=== PATIENT | female | born 1980 | race African-American/Black ===

== ENCOUNTER 2021-05-01 23:23 | Emergency (ER) | payer MEDICARE ==
[~2021-05-01] VITALS: Ht 180.3 cm; Wt 81.6 kg
[~2021-05-01 23:23] MED LIST: BUMETANIDE2 MG PO; CEFDINIR300 MG PO; CETIRIZINE HCL10 MG PO; DILTIAZEM 24HR360 MG PO; FLONASE 0.05% N16 GM; LEVOFLOXACIN250 MG PO; METOPROLOL SUC100 MG PO; POTASSIUM CHLO10 ME1 PO; ROCALTROL CA0.25 MCG PO
[2021-05-02 00:18] LABS: HEMOGLOBIN 11.5 gm/dl (12.3-15.3); RED BLOOD COUNT 4.12 M/UL (4.00-5.10); WHITE BLOOD COUNT 8.5 K/UL (4.5-11.0)
[2021-05-02] MEDS ORDERED: ZOFRAN ODT 4 MG4 MG SL (13:17)
== END 2021-05-02 19:45 | disposition admitted as inpatient to this hospital (09) ==
LOC: ER1 23:23
PROVIDERS: Emergency Medicine; Physician Assistant
DX: N18.6 End stage renal disease (principal); Z99.2 Dependence on renal dialysis; F17.210 Nicotine dependence, cigarettes, uncomplicated
CPT/HCPCS: 71045; 80048; 80053; 83735; 84132; 85025; 93005; 96374; 96375; 96376; 99285; J3475; J3480; J7070

== ENCOUNTER 2021-06-18 11:55 | Inpatient (IN) | payer MEDICARE, BC ==
[~2021-06-18] VITALS: Ht 180.3 cm; Wt 81.6 kg
[~2021-06-18 11:55] MED LIST changes: +ZOFRAN ODT 4 MG4 MG SL
[2021-06-18 12:37] LABS: HEMOGLOBIN 11.1 gm/dl (12.3-15.3); RED BLOOD COUNT 3.72 M/UL (4.00-5.10); WHITE BLOOD COUNT 12.9 K/UL (4.5-11.0)
[2021-06-18 15:33] LABS: BODY FLUID SOURCE PERITONEAL; RBC (AUTOMATED) 1700 (0-100000); WBC (AUTOMATED) 16530 (0-500)
[2021-06-18 15:34] LABS: MONONUCLEAR CELLS 5 (75-100); POLYMORPHONUCLEAR % 95 (0-25)
[2021-06-18 15:38] LABS: LDH, BODY FLUID 230 U/L; TOTAL PROTEIN, BODY FLUID 0.6 gm/dL
[2021-06-18] MEDS ORDERED: POTASSIUM20 MEQ/15 PO (21:08)
[2021-06-19 07:17] LABS: WHITE BLOOD COUNT 12.8 K/UL (4.5-11.0)
[2021-06-19 07:18] LABS: HEMOGLOBIN 8.9 gm/dl (12.3-15.3); RED BLOOD COUNT 3.03 M/UL (4.00-5.10)
[2021-06-22 06:51] LABS: HEMOGLOBIN 9.5 gm/dl (12.3-15.3); RED BLOOD COUNT 3.22 M/UL (4.00-5.10); WHITE BLOOD COUNT 11.2 K/UL (4.5-11.0)
[2021-06-22] MEDS ORDERED: ROXICODONE TAB 55 MG PO (08:40)
[2021-06-22] MEDS ORDERED: LACTULOSE10 GM/15 M PO (08:40)
== END 2021-06-22 14:00 | disposition home or self-care (01) | DRG 919 ==
LOC: ER1 11:55 → CDU 16:30 → MED SURG 4 16:30
PROVIDERS: Internal Medicine; Internal Medicine Nephrology; Nurse Practitioner; ADMIT Internal Medicine
PROC: 3E1M39Z Irrigation of Peritoneal Cavity using Dialysate, Percutaneous Approach (ICD-10-PCS; principal; 2021-06-19)
DX: T85.71XA Infection and inflammatory reaction due to peritoneal dialysis catheter, initial encounter (principal); N18.6 End stage renal disease; Z20.822 Contact with and (suspected) exposure to COVID-19; Z66 Do not resuscitate; A41.89 Other specified sepsis; K65.2 Spontaneous bacterial peritonitis; N25.81 Secondary hyperparathyroidism of renal origin; I12.0 Hypertensive chronic kidney disease with stage 5 chronic kidney disease or end stage renal disease; Y83.8 Other surgical procedures as the cause of abnormal reaction of the patient, or of later complication, without mention of misadventure at the time of the procedure; F17.210 Nicotine dependence, cigarettes, uncomplicated; E78.5 Hyperlipidemia, unspecified; D63.1 Anemia in chronic kidney disease; K59.00 Constipation, unspecified; B96.4 Proteus (mirabilis) (morganii) as the cause of diseases classified elsewhere; E87.6 Hypokalemia; E83.51 Hypocalcemia; Z90.49 Acquired absence of other specified parts of digestive tract; Z88.6 Allergy status to analgesic agent; Z88.8 Allergy status to other drugs, medicaments and biological substances; Z88.2 Allergy status to sulfonamides; Z91.041 Radiographic dye allergy status
CPT/HCPCS: 36415; 80048; 80053; 80202; 82945; 83605; 83615; 83690; 83735; 84132; 84157; 85025; 87040; 87070; 87077; 87186; 87205; 89051; 90945; 90947; 96374; 96375; 96376; 99285; J0610; J0696; J2020; J2185; J2270; J2405; J3370; J3475; J3480; J7050; U0002

== ENCOUNTER → 2021-07-19 | Outpatient (CLI) | payer MEDICARE, BC ==
[~2021-07-19] MED LIST changes: +LACTULOSE10 GM/15 M PO; +POTASSIUM20 MEQ/15 PO; +ROXICODONE TAB 55 MG PO
[2021-07-19 14:10] LABS: BODY FLUID SOURCE PERITONEAL
[2021-07-19 14:11] LABS: MONONUCLEAR CELLS 44 %; POLYMORPHONUCLEAR 56 %; RBC (AUTOMATED) 800 10^6; WBC (AUTOMATED) 43 10^3
== END ==
LOC: LBRF 12:46
PROVIDERS: Internal Medicine Nephrology
DX: K65.9 Peritonitis, unspecified (principal); I12.0 Hypertensive chronic kidney disease with stage 5 chronic kidney disease or end stage renal disease; N18.6 End stage renal disease; E87.1 Hypo-osmolality and hyponatremia
CPT/HCPCS: 87070; 87205; 89051

== ENCOUNTER → 2022-02-28 | Outpatient (CLI) | payer MEDICARE, BC | LOC: HEART 5 14:21 | DX: R06.02 Shortness of breath (principal) | CPT/HCPCS: 71046; 94060; 94729; 95012 ==